=== PATIENT | female | born 1975 | race Caucasian/White ===

== ENCOUNTER 2016-05-05 07:50 | Emergency (ER) | payer OTHER ==
[~2016-05-05] VITALS: Ht 172.7 cm; Wt 92.6 kg
[2016-05-05 09:31] VITALS: BP 126/79
== END 2016-05-05 09:31 | disposition home or self-care (01) ==
LOC: ED 07:50
DX: R42 Dizziness and giddiness (principal); N39.0 Urinary tract infection, site not specified; R11.2 Nausea with vomiting, unspecified; I10 Essential (primary) hypertension; E11.9 Type 2 diabetes mellitus without complications
CPT/HCPCS: J8597; Q0162

== ENCOUNTER 2017-01-26 21:48 | Emergency (ER) | payer OTHER ==
[~2017-01-26] VITALS: Ht 157.5 cm; Wt 84.8 kg
[2017-01-26 21:49] VITALS: Ht 157.5 cm; Wt 84.8 kg
[2017-01-26 23:15] VITALS: BP 146/96
== END 2017-01-26 23:15 | disposition home or self-care (01) ==
LOC: ED 21:48
DX: S61.216A Laceration without foreign body of right little finger without damage to nail, initial encounter (principal); I10 Essential (primary) hypertension; E11.9 Type 2 diabetes mellitus without complications; E78.00 Pure hypercholesterolemia, unspecified; X58.XXXA Exposure to other specified factors, initial encounter; Y93.89 Activity, other specified; Y92.89 Other specified places as the place of occurrence of the external cause; Y99.8 Other external cause status
CPT/HCPCS: 90715; J2001